=== PATIENT | male | born 1965 | race American Indian/Alaskan Native ===

== ENCOUNTER 2016-12-30 11:17 | Outpatient (CLI) | payer OTHER ==
[2016-12-30 12:55] LABS: Bilirubin,Urine NEG (Negative); Blood,Urine NEG (Negative); Ketones,Urine NEG (Negative); Leukocyte Esterase,Urine NEG (Negative); Mucus,Urine FEW /HPF; Nitrite,Urine NEG (Negative); Protein,Urine <15 mg/dL mg/dL (Negative); Urobilinogen,Urine < 2.0 mg/dL (<2.0)
[2016-12-30 12:56] LABS: RBC,Urine < 1.0 /HPF (0.0-6.0)
[2016-12-30 13:48] LABS: HIV-1 Antigen p24 Non React (Non React); HIVR-1/2 Ab Non React (Non React)
== END 2016-12-30 11:18 | disposition home or self-care (01) ==
LOC: LAB 11:17
PROVIDERS: ATTEND Clinical Nurse Specialist Psychiatric/Mental Health
DX: F32.1 Major depressive disorder, single episode, moderate (principal); F10.20 Alcohol dependence, uncomplicated
CPT/HCPCS: 36415; 80074; 81001; 87806